=== PATIENT | male | born 1955 | race American Indian/Alaskan Native ===

== ENCOUNTER 2020-02-26 23:26 | Emergency (ER) | payer MEDICARE, MEDICAID ==
[2020-02-27 00:21] LABS: Basophils % (Auto) 0.5 % (0.0-1.8); Eosinophils # (Auto) 0.1 K/mm3 (0.0-0.4); Eosinophils % (Auto) 1.9 % (0.0-4.3); Hematocrit 28.9 % (35.5-45.6); Hemoglobin 9.1 gm/dl (11.8-15.2); Lymphocytes # (Auto) 1.7 K/mm3 (1.2-5.4); Lymphocytes % (Auto) 24.1 % (13.4-35.0); Mean Corpuscular HGB Conc 32 % (32-34); Mean Corpuscular Volume 90 fl (84-94); Monocytes # (Auto) 0.8 K/mm3 (0.0-0.8); Monocytes % (Auto) 10.7 % (0.0-7.3); Platelet Count 280 K/mm3 (140-440); Red Blood Count 3.22 M/mm3 (3.65-5.03); Red Cell Distribution Width 15.4 % (13.2-15.2)
--- NOTE | 2020-02-27 00:36 | XRay Report ---
CHEST 1 VIEW 12:00 AM INDICATION / CLINICAL INFORMATION: Dyspnea. COMPARISON: None available. FINDINGS: SUPPORT DEVICES: None. HEART / MEDIASTINUM: The heart size is normal. There is mild prominence of the central pulmonary vess els. LUNGS / PLEURA: There are emphysematous changes with bullous change in the right upper lung. Intersti tial lung markings are slightly increased. There are small bilateral pleural effusions. No pneumothor ax. ADDITIONAL FINDINGS: No significant additional findings. IMPRESSION: Probable mild congestive heart failure superimposed on COPD. Signer Name: Memo Camara MD Signed: 02/27/2020 12:31 AM Workstation Name: [id number]
[2020-02-27 00:44] LABS: Alanine Aminotransferase 173 units/L (7-56); Albumin 3.4 g/dL (3.9-5); BUN/Creatinine Ratio 20; Blood Urea Nitrogen 28 mg/dL (9-20); Calcium 9.4 mg/dL (8.4-10.2); Hemolysis Index 4
--- NOTE | 2020-02-27 01:35 | Emergency Department Report ---
ED Shortness of Breath HPI - General Chief Complaint: Dyspnea/Respdistress Stated Complaint: KULDIP Time Seen by Provider: 02/26/20 23:51 Source: EMS Mode of arrival: Stretcher Limitations: No Limitations - History of Present Illness Initial Comments: [facility], and shortness of breath. Patient denies any sob, but states occasional he has sob, due to chf, he is on lasix. no fever, chills or night sweats. Denies any covid-19 contacts. - Related Data Allergies Allergy/AdvReac Type Severity Reaction Status Date / Time No Known Allergies Allergy Unverified 02/26/20 23:56 ED Review of Systems ROS: Stated complaint: KULDIP Other details as noted in HPI ED Past Medical Hx - Past Medical History Previous Medical History?: Yes Hx Diabetes: Yes Hx COPD: Yes - Surgical History Past Surgical History?: No - Social History Smoking Status: Former Smoker Substance Use Type: None ED Physical Exam - General Limitations: No Limitations ED Course Vital Signs 02/26/20 02/26/20 02/26/20 23:37 23:46 23:48 Temperature 97.9 F Pulse Rate 80 80 Respiratory 24 22 Rate Blood Pressure 130/64 130/64 Blood Pressure 130/64 [Left] O2 Sat by Pulse 94 93 Oximetry 02/26/20 02/27/20 02/27/20 23:50 00:00 00:16 Temperature 97.9 F Pulse Rate 80 71 69 Respiratory 22 24 22 Rate Blood Pressure 130/64 130/64 133/74 Blood Pressure [Left] O2 Sat by Pulse 93 99 98 Oximetry 02/27/20 00:30 Temperature Pulse Rate 72 Respiratory 24 Rate Blood Pressure 133/74 Blood Pressure [Left] O2 Sat by Pulse 100 Oximetry ED Medical Decision Making - Lab Data Result diagrams: 02/27/20 00:06 02/27/20 00:06 Critical care attestation.: If time is entered above; I have spent that time in minutes in the direct care of this critically ill patient, excluding procedure time. ED Disposition Clinical Impression: Congestive heart failure (CHF) Qualifiers: Heart failure type: systolic Heart failure chronicity: chronic Qualified Code(s): I50.22 - Chronic systolic (congestive) heart failure Disposition: TO HOME OR SELFCARE Is pt being admited?: No Does the pt Need Aspirin: No Condition: Stable Referrals: CANDELARIO OSHEA MD [Primary Care Provider] - 3-5 Days
[2020-02-27 03:49] VITALS: BP 129/104
== END 2020-02-27 03:49 | disposition home or self-care (01) ==
LOC: ED 23:26
DX: I50.9 Heart failure, unspecified (principal); J44.9 Chronic obstructive pulmonary disease, unspecified; E11.9 Type 2 diabetes mellitus without complications; Z79.899 Other long term (current) drug therapy
CPT/HCPCS: 36415; 71045; 80053; 83880; 85025

== ENCOUNTER 2020-11-23 08:22 | Emergency (ER) | payer MEDICARE, MEDICAID ==
[~2020-11-23 08:22] MED LIST: EPINEPHrine 1 MG/10 ML SYRINGE ONE
--- NOTE | 2020-11-23 08:55 | Emergency Department Report ---
ED CPR HPI - General Chief Complaint: Cardiac Arrest/CPR Stated Complaint: CA Time Seen by Provider: 11/23/20 08:55 - History of Present Illness Initial Comments: Patient is a 65-year-old male brought to the emergency room was found by facility staff this morning to be unresponsive. EMS notes on arrival patient clinically had been unresponsive for several hours estimating likely last night. Medic staff note asystole on arrival, CPR initiated, patient intubated, patient given EPI x 3, Bicarb x 1, and D50 (patient hypoglycemic per EMS). Patient presents unresponsive with CPR in progress, consequently requiring my immediate attention. MD Complaint: found unresponsive - Related Data Allergies Allergy/AdvReac Type Severity Reaction Status Date / Time No Known Allergies Allergy Unverified 02/26/20 23:56 ED Review of Systems ROS: Stated complaint: CA Other details as noted in HPI Comment: Unobtainable due to pts medical conditions ED Past Medical Hx - Past Medical History Hx Diabetes: Yes Hx COPD: Yes - Social History Smoking Status: Former Smoker Substance Use Type: None ED Physical Exam - General Limitations: Other (unresponsive) General appearance: in distress - Head Head exam: Present: atraumatic - Eye Eye exam: Present: other (pupils fixed/dilated) - ENT ENT exam: Present: normal exam - Neck Neck exam: Present: normal inspection - Respiratory Respiratory exam: Present: other (breath sounds symmetric with bag-valve respirations via ETT) - Cardiovascular Cardiovascular Exam: Present: other (pulseless) - GI/Abdominal GI/Abdominal exam: Present: soft - Rectal Rectal exam: Present: deferred - Extremities Exam Extremities exam: Present: normal inspection, other ((+) IO whelan) - Neurological Exam Neurological exam: Present: other (unresponsive) - Psychiatric Psychiatric exam: Present: other (unresponsive) - Skin Skin exam: Present: cyanosis ED Course - Reevaluation(s) Reevaluation #1: 11/23/20 11:01 Without signs of sustainable rhythm, arrives in asystole without spontaneous respirations, pulseless, eyes fixed and dilated. At present time patient has been undergoing CPR >30 minutes with aggressive rescusitation via EMS without ROSC or any sign of clinical improvement. Bedside ultrasound demonstrates no cardiac activity whatsoever. Critical Care Time: Yes Critical care time in (mins) excluding proc time.: 35 Critical care attestation.: If time is entered above; I have spent that time in minutes in the direct care of this critically ill patient, excluding procedure time. Critical Care Time: Case discussed at length with EMS, with nursing staff, and with patient's POA. ED Disposition Clinical Impression: Cardiac arrest Disposition: DC-20 Is pt being admited?: No
== END 2020-11-23 09:00 ==
LOC: ED 08:22
DX: I46.9 Cardiac arrest, cause unspecified (principal)
CPT/HCPCS: 92950; 99285; J0171